=== PATIENT | female | born 1930 | race Caucasian/White ===

== ENCOUNTER 2016-10-03 10:18 | Emergency (ER) | payer OTHER, MEDICARE ==
[~2016-10-03] VITALS: Ht 149.9 cm; Wt 71.7 kg
[~2016-10-03 10:18] MED LIST: CALCIUM + D 6001 TAB PO; COUMADIN 5 MG TA5 MG PO; CRESTOR20 MG PO; GARLIC OIL1000 M1 PO; HUMALOG PEN100 U/ML SC; HYDRODIURIL 2525 MG PO; HYDRODIURIL 5050 MG PO; LEVEMIR FL300 UNITS/ SC; LEVEMIR100 UNIT/1 SC; LEVOTHYROXINE0.15 M1 PO; MAGNESIUM500 M2 PO; SENOKOT S 50 MG1 TAB PO; TENORMIN100 M1 PO
--- NOTE | 2016-10-03 11:17 | ED INFLUENZA/URI COMPLAINT ---
History of Present Illness General Chief Complaint: Upper Respiratory Sx/Fever Stated Complaint: CHEST CONGESTION,COUGH,FEVER Source: patient Exam Limitations: no limitations Vital Signs & Intake/Output Vital Signs & Intake/Output Vital Signs Date Time Temp Pulse Resp B/P Pulse O2 O2 Flow FiO2 Ox Delivery Rate 10/03 1301 98.8 70 18 148/69 98 Room Air Room Air ED Intake and Output 10/04 0000 10/03 1200 Intake Total 0 Output Total Balance 0 Intake, Oral 0 Patient 158 lb Weight Allergies Coded Allergies: Sulfa (Sulfonamide Antibiotics) (UNKNOWN 02/11/16) codeine (UNKNOWN 02/11/16) prednisone (RASH (WITH CHEMO) 02/11/16) Reconcile Medications Atenolol (Tenormin) 100 MG TABLET 1 TAB PO DAILY HEART (Reported) Benzonatate (Tessalon Perle) 100 MG CAPSULE 1 CAP PO TID PRN COUGH Bioflav,Lemon/Vit Bcomp,C (Lipo-Flavonoid Plus Caplet) 200 MG-100 MG TABLET 1 TAB PO DAILY SUPP (Reported) Garlic (Garlic Oil) 1,000 MG CAPSULE 1 CAP PO DAILY SUPP (Reported) Hydrochlorothiazide (Hydrodiuril 25 MG Tab) 25 MG TABLET 1 TAB PO DAILY HIGH BLOOD PRESSURE Insulin Detemir (Levemir) 100 UNIT/ML VIAL 14 UNITS SC BID DM (Reported) 14 UNITS AM AND PM Insulin Lispro, Recombinant (Humalog Pen) 100 U/ML GREY 0 SC AC DIABETES ( Reported) BEFORE MEALS FS Units <150 0 150-199 2 200-249 4 250-299 6 300-349 8 >350 10 Levothyroxine Sodium 0.15 MG TAB 1 TAB PO DAILY THYROID (Reported) Magnesium Oxide (Magnesium) 500 MG CAPSULE 1 CAP PO D SUPPLEMENT (Reported) Multivitamin (Daily Multiple Vitamin) 1 EACH TABLET 1 TAB PO 3XW SUPP ( Reported) [place]-3/Dha/Epa/Fish Oil (Fish Oil 1,000 MG Softgel) 300 MG-1,000 MG CAPSULE 1 TAB PO DAILY SUPP (Reported) Simvastatin (Simvastatin*) 40 MG TABLET 1 TAB PO QPM CHOL (Reported) Vit C/E/Zn/Coppr/Lutein/Zeaxan (Preservision Areds 2 Softgel) 250-200-40 CAPSULE 2 TAB PO DAILY EYES (Reported) Warfarin Sodium (Coumadin) 5 MG TABLET 1 TAB PO DAILY BLOOD CLOTS IN LUNGS Triage Note: C/O COUGH X 2 WEEKS, WITH WEAKNESS, POOR APPETITE. STATES SHE HAD RIB PAIN FROM COUGHING, NONE NOW. DENIES CHEST PAIN. PMH: PE, IDDM, LYMPHOMA. Triage Nurses Notes Reviewed? yes Onset: Just prior to arrival Duration: week(s): (2) Timing: recent history Severity: moderate, NOW IMPROVED No Modifying Factors: none Associated Symptoms: WEAKNESS HPI: This is an 86-year-old female with history of lymphoma, previous chemotherapy in the distant past, previous blood clot in her lungs who presents to the ER with chief complaint of worsening cough over the past 2 week, night sweats, feeling weak and with poor appetite. She states that in the last couple of days she started to feel slightly better. Daughter reports that she generally feels worse in the evening. Positive yellow phlegm. She has not been on any antibiotics. She did not follow up with her primary care doctor she assumed that he was sent her here for evaluation. Patient is on Coumadin for previous PE. Last INR checked last month was 2.2. No chest pain. No shortness of breath. No palpitations. She symptoms complains of cough and her bilateral ribs when coughing. No other associated symptoms. Denies any recent sick contacts or travel. She is not up-to-date with her flu or pneumonia vaccine. Past History Travel History Traveled to [place] past 21 day No Medical History Any Pertinent Medical History? see below for history Neurological: NONE EENT: NONE Cardiovascular: hypertension Respiratory: pulmonary embolism Gastrointestinal: NONE Hepatic: NONE Renal: NONE Musculoskeletal: NONE Psychiatric: NONE Endocrine: diabetes, "THYROID CONDITION" Blood Disorders: NONE Cancer(s): LYMPHOMA [employer]/Reproductive: NONE History of MRSA: No History of VRE: No History of CDIFF: No Tetanus Vaccine: 02/11/16 Surgical History Surgical History: non-contributory Psychosocial History Who do you live with Patient/Self Services at Home None What is your primary language [place] Tobacco Use: Never used ETOH Use: denies use Family History Family History, If Any: BROTHER (amyloidosis, ? bone CA). MOTHER (CHF). Hx Contributory? No Review of Systems Review of Systems Constitutional: Reports: diaphoresis, fever (SUBJECTIVE), weakness. Denies: chills. EENTM: Reports: no symptoms. Respiratory: Reports: cough, sputum production. Denies: short of breath. Cardiovascular: Denies: chest pain. GI: Denies: abdominal pain, diarrhea, nausea, vomiting. Genitourinary: Reports: no symptoms. Musculoskeletal: Reports: no symptoms. Skin: Reports: no symptoms. Neurological/Psychological: Denies: confusion, headache. Hematologic/Endocrine: Denies: bruising, bleeding, polyuria, polydipsia. Immunologic/Allergic: Reports: no symptoms. Denies: splenectomy. All Other Systems: Reviewed and Negative Physical Exam Physical Exam General Appearance: well developed/nourished, alert, awake, mild distress Head: atraumatic, normal appearance Eyes: Bilateral: normal appearance, PERRL, EOMI. Ears, Nose, Throat: normal ENT inspection, moist mucous membrane, hearing grossly normal, pharynx normal Neck: normal inspection, supple, full range of motion Respiratory: normal breath sounds, chest non-tender, no respiratory distress, lungs clear, no rales or rhonchi Cardiovascular: regular rate/rhythm Peripheral Pulses: 2+ radial (R), 2+ radial (L) Gastrointestinal: normal bowel sounds Back: normal inspection, normal range of motion Extremities: normal inspection, normal capillary refill, normal range of motion Neurologic/Psych: no motor/sensory deficits, awake, alert, oriented x 3 Skin: intact, normal color, warm/dry Core Measures Severe Sepsis Present: No Septic Shock Present: No Progress Differential Diagnosis: influenza, pneumonia Plan of Care: Orders Procedure Date/time Status Add-on Test (ER Only) 10/03 1233 Active TROPONIN LEVEL 10/03 1127 Complete CXR NEG, FLU SWAB NEGATIVE. LABS WNL. (ZAINAB VOGEL,NA) Diagnostic Imaging: Viewed by Me: Radiology Read. Discussed w/RAD: Radiology Read. CXR Impression: PATIENT: GREG OMER PRESENT AGE: 86 PATIENT ACCOUNT NO: [id number] : 31 LOCATION: [facility] ORDERING PHYSICIAN: NA LAMB MD SERVICE DATE: 10/03/16 EXAM TYPE: RAD - XRY-CHEST XRAY , PA AND LATERAL EXAMINATION: XR CHEST CLINICAL INFORMATION: Cough. 2 weeks. COMPARISON: Chest radiograph dated 08/12/2015. TECHNIQUE: 2 views of the chest were obtained. FINDINGS: The heart is normal in size. There is mild uncoiling of the thoracic aorta. There is no definite pneumonia. No pneumothorax or pleural effusion. Degenerative changes of the thoracic spine. IMPRESSION: No pneumonia, pneumothorax or pleural effusion. No significant change when compared with the prior examination dated 08/12/2015. DICTATED BY: BALDEMAR RUBIO MD DATE/TIME DICTATED:10/03/161207 CREATIVE ART DIRECTOR:MATTHEW DATE/TIME TRANSCRIBED:1207 CONFIDENTIAL, DO NOT COPY WITHOUT APPROPRIATE AUTHORIZATION. < Electronically signed in Other Vendor System> SIGNED BY: BALDEMAR RUBIO MD 10/03/16 1215 Initial ED EKG: NSR, ST depression (INFER/LATERAL) Prior EKG: unchanged Departure Departure Time of Disposition: 1303 Disposition: HOME OR SELF CARE Condition: Stable Clinical Impression Primary Impression: URI (upper respiratory infection) Referrals: JERMAINE VOGEL,SARA Castellanos (PCP/Family) Additional Instructions: TAKE THE TESSALON PEARLES DIRECTED AND CONTINUE THE MUCINEX NEEDED. DRINK PLENTY OF FLUIDS. FOLLOW UP WITH YOUR DOTOR IN THE OFFICE. RETURN NEEDED. Departure Forms: Customer Survey General Discharge Information Prescriptions: Current Visit Scripts Benzonatate (Tessalon Perle) 1 CAP PO TID PRN COUGH #30 CAP
[2016-10-03 11:40] LABS: ABSOLUTE BASOPHIL COUNT 0 /CUMM (0.0-0.2); ABSOLUTE EOSINOPHIL COUNT 0.1 /CUMM (0.0-0.7); ABSOLUTE MONOCYTE COUNT 0.6 /CUMM (0.10-0.60); BASOPHIL % 0.5 % (0.0-2.0); GRANULOCYTE % 63.9 % (42.2-75.2); HEMATOCRIT 40.5 % (37-47); MEAN CORPUSCULAR HGB 30.9 PG (27.0-31.0); MEAN CORPUSCULAR HGB CONC 34.5 G/DL (33.0-37.0); MEAN CORPUSCULAR VOLUME 89.5 FL (81.0-99.0); MEAN PLATELET VOLUME 7.8 FL (7.4-10.4); PLATELET COUNT 153 /CUMM (130-400); RBC DISTRIBUTION WIDTH 13.3 % (11.5-14.5); RED BLOOD CELL CT 4.52 /CUMM (4.20-5.40); WHITE BLOOD CELL COUNT 4.8 /CUMM (4.8-10.8)
--- NOTE | 2016-10-03 12:15 | RADIOLOGY REPORT ---
EXAMINATION: XR CHEST CLINICAL INFORMATION: Cough. 2 weeks. COMPARISON: Chest radiograph dated 08/12/2015. TECHNIQUE: 2 views of the chest were obtained. FINDINGS: The heart is normal in size. There is mild uncoiling of the thoracic aorta. There is no definite pneumonia. No pneumothorax or pleural effusion. Degenerative changes of the thoracic spine. IMPRESSION: No pneumonia, pneumothorax or pleural effusion. No significant change when compared with the prior examination dated 08/12/2015.
[2016-10-03] MEDS ORDERED: SIMVASTATIN40 M1 PO (12:41)
[2016-10-03] MEDS ORDERED: FISH OIL 1,0001 EAC2 PO (12:42)
[2016-10-03] MEDS ORDERED: LIPO-FLAVONOID1 EACH PO (12:44)
[2016-10-03] MEDS ORDERED: DAILY MULTIPLE1 EACH PO (12:45)
[2016-10-03] MEDS ORDERED: PRESERVISION A1 EAC1 PO (12:45)
[2016-10-03 13:01] VITALS: BP 148/69
[2016-10-03] MEDS ORDERED: TESSALON PERLE100 M1 PO (13:04)
== END 2016-10-03 13:14 ==
LOC: ERH 10:18
PROVIDERS: Emergency Medicine
DX: J06.9 Acute upper respiratory infection, unspecified (principal); R50.9 Fever, unspecified; R07.81 Pleurodynia
CPT/HCPCS: 87804; 87804-59; 93005; 93010